=== PATIENT | male | born 1950 | race Caucasian/White ===

== ENCOUNTER 2016-10-14 06:58 | Day surgery (SDC) | payer OTHER ==
[~2016-10-14 06:58] MED LIST: ASPIRIN325 MG PO; COQ1030 MG PO; CRESTOR40 MG PO; FLONASE AL50 MCG/ACT; GLUCOSAMINE1500 COM PO; IRBESARTAN300 MG PO; NORCO1 TA1 PO
--- NOTE | 2016-10-14 09:34 | Provider's Discharge Care Plan ---
Problem, Goal, Plan Problem List 1. S/P colonoscopy Goals: Screening Instructions: Follow up as needed, Take meds as directed, HIGH FIBER DIET
--- NOTE | 2016-10-14 09:34 | Provider's Discharge Care Plan ---
Problem, Goal, Plan Problem List 1. S/P colonoscopy Goals: Screening Instructions: Follow up as needed, Take meds as directed, HIGH FIBER DIET
--- NOTE | 2016-10-14 10:07 | OPERATIVE REPORT ---
DATE OF SURGERY: 10/14/2016 SURGEON: Lawrence Pablo III, MD [employer] ATTENDANT: None. PREOPERATIVE DIAGNOSIS: 1. Family history of colon cancer POSTOPERATIVE DIAGNOSIS: 1. Normal colonoscopy PROCEDURE PERFORMED: 1. Colonoscopy ANESTHESIA: TIVA. INDICATIONS: A 66-year-old asymptomatic male with a family history of colon cancer, father at age 70 had colon cancer. The patient's last colonoscopy was approximately 10 years ago. SURGICAL FINDINGS: Normal-appearing cecum, ascending, transverse, descending colon, sigmoid colon, and rectal vault. It should be noted that the patient had a lot of liquid stool in the colon requiring a considerable amount of irrigation aspiration. SURGICAL TECHNIQUE: The patient was brought to the operating room and placed in the left lateral decubitus position and was administered TIVA and monitored closely by anesthesia. After proper anesthesia had taken effect, a digital rectal examination revealed no masses or stenosis. This was followed by the passage of a fiberoptic video flexible colonoscope, which with considerable difficulty, negotiated to the right colon and the cecum secondary to the poor prep. On withdrawing the scope, the aforementioned findings noted. The scope was retroflexed, good view of the rectal vault obtained. No pathology identified. The scope was completely withdrawn. The patient tolerated the procedure well and was transferred to the recovery room in stable condition. There were no intraoperative or anesthetic complications.
== END 2016-10-14 11:15 | disposition home or self-care (01) ==
LOC: OR SRH 06:58 → SCU SRH 07:01
PROVIDERS: Specialist
PROC: 0DJD8ZZ Inspection of Lower Intestinal Tract, Via Natural or Artificial Opening Endoscopic (ICD-10-PCS; principal; 2016-10-14 09:00)
DX: Z12.11 Encounter for screening for malignant neoplasm of colon (principal); Z80.0 Family history of malignant neoplasm of digestive organs
CPT/HCPCS: 29229; 29240; 50004; 60001; 83526

== ENCOUNTER 2016-11-10 09:12 | Outpatient (CLI) | payer OTHER ==
--- NOTE | 2016-11-10 11:30 | DIAGNOSTIC IMAGING REPORT ---
PROCEDURE: XR LUMBAR SPINE 5 VIEWS INDICATION: PAIN IN RIGHT HIP,LUMBOSACRAL SPINE TECHNIQUE: Five views. COMPARISON: None. FINDINGS: Osseous structures and disc spaces are normal. No evidence of an acute process or fracture. No evidence of spondylolysis or spondylolisthesis. IMPRESSION: 1. Negative lumbar spine.
--- NOTE | 2016-11-10 11:31 | DIAGNOSTIC IMAGING REPORT ---
PROCEDURE: XR HIP BILATERAL INDICATION: PAIN IN RIGHT HIP TECHNIQUE: AP view of the pelvis and hips with lateral views of the bilateral hips. COMPARISON: None. FINDINGS: RIGHT HIP: Osseous structures and joint spaces are normal. LEFT HIP: Osseous structures and joint spaces are normal. PELVIS: Osseous pelvis is normal. IMPRESSION: 1. Negative pelvis and bilateral hips.
--- NOTE | 2016-11-10 11:34 | DIAGNOSTIC IMAGING REPORT ---
PROCEDURE: XR FOOT 3 VIEWS - RIGHT INDICATION: PAIN IN RIGHT HIP,LUMBOSACRAL SPINE,PAIN IN RIGHT FOOT TECHNIQUE: Three views. COMPARISON: None. FINDINGS: Osteoarthritis first metatarsal phalangeal joint. There is no fracture or dislocation. IMPRESSION: 1. Osteoarthritis first metatarsal phalangeal joint.
== END 2016-11-10 23:00 ==
LOC: XR SRH 09:12
DX: M19.071 Primary osteoarthritis, right ankle and foot (principal); M25.551 Pain in right hip; M54.5 Low back pain

== ENCOUNTER 2016-12-08 10:37 | Outpatient (CLI) | payer OTHER ==
--- NOTE | 2016-12-08 12:15 | DIAGNOSTIC IMAGING REPORT ---
PROCEDURE: MR LUMBAR SPINE W/O CONTRAST INDICATION: RADICULOPATHY TECHNIQUE: Noncontrast T1, T2, and STIR sagittal images. T1 and T2 axial images. COMPARISON: Comparison made radiographs of the lumbar spine on 11/10/2016. FINDINGS: Conus is normal. There is a mild levoscoliosis (five degrees). There is a 10% old wedge compression deformity L1 vertebral body. L1-2: There is a mildly chronically bulging disc with mild narrowing central canal and lateral recesses. L2-3: Minimally bulging disc. L3-4: Mild facet disease. L4-5: Mildly bulging disc and facet disease results in mild narrowing of the central canal and lateral recesses. L5-S1: Moderate broad-based left posterior lateral and lateral disc herniation superimposed on a mildly chronically bulging disc, and mild to moderate facet disease. Overall, these changes result in moderate to severe narrowing of the left neural foramen with moderate narrowing of the left lateral recess, and mild narrowing of the right lateral recess IMPRESSION: 1. Mild to moderate degenerative changes of the lumbar spine. 2. Mild levoscoliosis (5 degrees). 3. There is a 10% old compression of the L1 vertebral body. 4. Mildly bulging disc at L1-2 and L4-5 with minimally bulging disc at L2-3, but little evidence of significant canal compromise. 5. There is a moderate left posterior lateral and lateral disc herniation at L5-S1 with moderate to severe narrowing of the left neural foramen, and moderate narrowing of the left lateral recess. Consider left L5 (or left S1) radiculopathy.
== END 2016-12-08 23:00 ==
LOC: MRI SRH 10:37
DX: M51.36 Other intervertebral disc degeneration, lumbar region (principal); M51.26 Other intervertebral disc displacement, lumbar region; M48.07 Spinal stenosis, lumbosacral region